=== PATIENT | male | born 1985 | race Caucasian/White ===

== ENCOUNTER 2020-03-25 09:35 | Day surgery (SDC) | payer OTHER ==
[2020-03-23 09:46] VITALS: BMI 29.7
[2020-03-25] MEDS ORDERED: Metoclopramide HCl 10 MG/2 ML VIAL ONE (10:36)
[2020-03-25] MEDS ORDERED: Rocuronium Bromide 10 MG/ML (10ML VIAL) ONE (10:36)
[2020-03-25] MEDS ORDERED: Lidocaine 1% PF 5 ML VIAL ONE (10:36)
[2020-03-25] MEDS ORDERED: Dexamethasone 20 MG/5 ML VIAL ONE (10:36)
[2020-03-25] MEDS ORDERED: PROPOFOL 200 MG/20 ML VIAL ONE (10:36)
[2020-03-25] MEDS ORDERED: ePHEDrine 50 MG/ML VIAL ONE (10:36)
[2020-03-25] MEDS ORDERED: Ondansetron PF 4 MG/2 ML Vial ONE (10:36)
[2020-03-25] MEDS ORDERED: XYLOCAINE 2%-EPI 1:100,000 20 ML VIAL ONE (11:45)
[2020-03-25] MEDS ORDERED: Scopolamine 1.5 mg/72 hour Patch ONE (11:49)
[2020-03-25] MEDS ORDERED: Midazolam HCl 2 mg/2 ml Vial ONE (11:49)
[2020-03-25] MEDS ORDERED: Fentanyl 100 MCG/2 ML VIAL ONE (11:49)
[2020-03-25] MEDS ORDERED: Famotidine/PF 20 mg/2ml Vial ONE (12:48)
[2020-03-25] MEDS ORDERED: HYDROcodone/Acetaminophen 5/325 mg Tablet ONE (14:21)
--- NOTE | 2020-03-26 07:14 | OP ---
DATE OF PROCEDURE: 03/25/2020 PREOPERATIVE DIAGNOSIS: Right thyroid mass. POSTOPERATIVE DIAGNOSIS: Right thyroid mass. PROCEDURE PERFORMED: Right thyroid lobectomy with laryngeal nerve monitoring. 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 PROCEDURE IN DETAIL: After consent was obtained, the patient was identified and brought to the operating room and placed on the operating table in supine position. General endotracheal anesthesia was obtained with a laryngeal nerve monitoring endotracheal tube and the patient was positioned for surgery. The endotracheal tube was documented to be functioning well and we prepped and draped the patient. We infiltrated the lower neck with 1% lidocaine and 1:100,000 epinephrine and delineated a natural skin crease for the incision. Incision was made through skin, subcutaneous tissues, and platysma. Subplatysmal flaps were elevated and the strap muscles were divided. We then dissected the thyroid along the thyroid capsule and strap muscles were retracted, and the inferior vessels, superior vessels, and middle vessels were suture ligated or hemoclipped. These were clamped, cut, and controlled with hemoclips. We then were able to roll the thyroid medially as the thyroid lobe was dissected from the paratracheal region. Recurrent laryngeal nerve and both parathyroid glands were identified and preserved. Ultimately, the specimen was transected in the midline and sent for histologic evaluation, turned out to be benign and we decided to close the wound in layers. Monocryl was used to reapproximate the strap muscles and the platysma and 6-0 Prolene for the skin. Sterile dressing was applied. Job ID: [id number]
== END 2020-03-25 15:45 | disposition home or self-care (01) ==
LOC: SDC 09:35
PROVIDERS: ATTEND Specialist
PROC: 0GBJ0ZZ Excision of Thyroid Gland Isthmus, Open Approach (ICD-10-PCS; principal; 2020-03-25)
PROC: 0GTK0ZZ Resection of Thyroid Gland, Open Approach (ICD-10-PCS; principal; 2020-03-25)
DX: D34 Benign neoplasm of thyroid gland (principal); E04.2 Nontoxic multinodular goiter; F17.220 Nicotine dependence, chewing tobacco, uncomplicated; F41.9 Anxiety disorder, unspecified; F90.9 Attention-deficit hyperactivity disorder, unspecified type; Z79.899 Other long term (current) drug therapy; Z88.0 Allergy status to penicillin
CPT/HCPCS: 88307; 88331; J1100; J2250; J2405; J2704; J2765; J3010; J3490; S0028